=== PATIENT | female | born 1970 | race Two or more races ===

== ENCOUNTER 2024-04-21 08:38 | Outpatient (AMB) | payer MEDICAID, SELFPAY ==
[2024-04-21 08:53] VITALS: BP 137/84; PULSE 80; RESP 18; TEMP 36.8; O2SAT 99; BMI 31.0
--- NOTE | 2024-04-21 08:53 | PD.ORTHCLVIS ---
Vital signs 04/21/24 08:53 Height 1.6 m Height Method Stated Weight 79.549 kg Weight Measurement Method Standing Scale BMI 31.0 BP 137/84 H Blood Pressure Source Automatic Cuff Blood Pressure Location Left Upper Arm Position Sitting Respiration 18 Pulse 80 Pulse Source Monitor Temp 98.2 F Temp Source Oral Pulse Oximetry (%) 99 Oxygen Delivery Method Room Air Med/Allergies Allergies & Medications Allergies No Known Allergies Allergy (Verified 04/21/24 08:54) Medication Reconciliation meloxicam 7.5 mg tablet 7.5 mg PO QDAY #45 tabs 04/21/24 [Rx] Subjective Visit Visit for: new patient and knee Immunization / Flu Flu Vaccine in the Last 12 Months: No Flu Vaccine Exclusion Criteria: Already Received History of Present Illness Chief complaint: MCL TEAR Patient is a pleasant 53-year-old female with a left knee pain. This has been ongoing for over a year after a fall in February. She had an MRI and was found to have a posterior horn medial meniscus tear. Appear to be degenerative and horizontal. I did review this on imaging and also demonstrates this. The pain is actually largely resolved. It is improved significantly. Personal History Occupation: [employer] Red flag PMH: none Pain Pain level (0-10): 0 Pain quality: aching Associated signs & symptoms: none Ambulatory data Ambulatory device: none Treatments Improvement with previous injections: No Improvement with PT: No Improvement with NSAIDS: no Review of Systems Review of Systems: All systems negative unless otherwise noted in HPI. Exam Exam Patient is in no acute distress and is cooperative with the examination today. Breathing is nonlabored. Patient has a normal mood and affect. Bilateral extremities were evaluated and demonstrates sensation intact to light touch. Palpable pedal pulses are present. No significant edema is present. Bilateral hips were examined. The patient has no pain with log roll of the hips. Internal rotation to 30 degrees and external rotation to 30 degrees is painless. Negative FADIR. Right knee was examined today. The right knee is in reasonable alignment. Range of motion from 0-120 degrees. Knee is stable to varus and valgus as well as AP translation with <5mm. Patient has a negative McMurrays. There is no pain with patellofemoral compression and no crepitus noted. The knee is nontender to palpation. Left knee was examined today. The left knee is in [varus] alignment. Range of motion from [0-115] degrees. Knee is stable to varus and valgus as well as AP translation with <5mm. Patient has a [negative] McMurrays. There is [no] pain with patellofemoral compression and [no] crepitus noted. The knee is [tender] to palpation [medially]. Assessment and Plan Problem List (1) Medial meniscus tear: Status: Acute Plan: Patient is a pleasant 53-year-old female with a degenerative meniscal tear. The pain is largely resolved. We discussed nonoperative operative options. We will start with a prescription for meloxicam. Hopefully continues to improve. We can try an injection as needed Office Procedures GNS Level of Care Nursing/Assessment Patient Status: Initial/New Patient Nursing Assessment/Reassesment: Medication Reconciliation, Update PMH in EMR and Vital Signs Coordination of Care: Complex Care/Chronic Disease 5 or more, Education Complex Pt/Fam, Consent,records obtained, informed consent and Staff clarify orders New Patient Charge New Patient Point Assignment: 1099 New Patient Point Charge: OUTSIDE RIGGER Level 3 ([id number]) Past Medical History Past Medical History Have you ever been diagnosed with any of the following: Cardiology Problems Hypertension: Yes Respiratory Problems Smoking: No Smoking Cessation Counseling: No Smoking Exposure: No Endocrine Problems Diabetes Mellitus Type 2: Yes
== END 2024-04-21 09:27 | disposition home or self-care (01) ==
PROVIDERS: PCP Family Medicine; Referring Provider Family Medicine; Supervising Provider Orthopaedic Surgery Adult Reconstructive Orthopaedic Surgery; Visit Provider Orthopaedic Surgery Adult Reconstructive Orthopaedic Surgery
DX: S83.249D Other tear of medial meniscus, current injury, unspecified knee, subsequent encounter (principal); W19.XXXD Unspecified fall, subsequent encounter; I10 Essential (primary) hypertension; E11.9 Type 2 diabetes mellitus without complications
CPT/HCPCS: 99203; G0463

== ENCOUNTER 2024-06-07 15:27 | Outpatient (AMB) | payer MEDICAID, SELFPAY ==
[2024-06-07 15:32] VITALS: BP 141/83; PULSE 77; RESP 18; TEMP 36.3; O2SAT 96; BMI 30.9
--- NOTE | 2024-06-07 15:32 | RHCORTHONT_ITS ---
Vital signs 06/07/24 15:32 Height 1.6 m Height Method Stated Weight 79.038 kg Weight Measurement Method Standing Scale BMI 30.9 BP 141/83 H Blood Pressure Source Automatic Cuff Blood Pressure Location Left Upper Arm Position Sitting Respiration 18 Pulse 77 Pulse Source Monitor Temp 97.3 F Temp Source Temporal Artery Scan Pulse Oximetry (%) 96 Oxygen Delivery Method Room Air Med/Allergies Allergies & Medications Allergies No Known Allergies Allergy (Verified 06/07/24 15:33) Medication Reconciliation meloxicam 7.5 mg tablet 7.5 mg PO QDAY #45 tabs 04/21/24 [Rx Confirmed 06/07/24] Exam Exam Patient is in no acute distress and is cooperative with the examination today. Breathing is nonlabored. Patient has a normal mood and affect. Bilateral extremities were evaluated and demonstrates sensation intact to light touch. Palpable pedal pulses are present. No significant edema is present. Bilateral hips were examined. The patient has no pain with log roll of the hips. Internal rotation to 30 degrees and external rotation to 30 degrees is painless. Negative FADIR. Right knee was examined today. The right knee is in reasonable alignment. Range of motion from 0-120 degrees. Knee is stable to varus and valgus as well as AP translation with <5mm. Patient has a negative McMurrays. There is no pain with patellofemoral compression and no crepitus noted. The knee is nontender to palpation. Left knee was examined today. The left knee is in [varus] alignment. Range of motion from [0-115] degrees. Knee is stable to varus and valgus as well as AP translation with <5mm. Patient has a [negative] McMurrays. There is [no] pain with patellofemoral compression and [no] crepitus noted. The knee is [tender] to palpation [medially]. Assessment and Plan Problem List (1) Medial meniscus tear: Status: Acute Plan: Patient is a pleasant 53-year-old female with a degenerative meniscal tear. The pain is largely resolved. We would like to see x-rays to see how bad the arthritis is. She does not have weightbearing x-rays. I tried to explain to her that I would need to want to better assess the arthritis. I discussed with her that degenerative meniscal tears are usually treated nonoperatively. However, the patient is looking for a surgical treatment. I have not okay doing a surgery that is unlikely to benefit her. I would recommend continue nonoperative treatment as she has not tried Any conservative treatment. We can try an injection today. I would recommend that she get a second opinion as she does not okay with nonoperative treatment We discussed injections. We gave her the consent and she was not comfortable signing it is not okay with the risks. We thus recommend that she get a second opinion with another surgeon. Office Procedures GNS Level of Care Nursing/Assessment Patient Status: Established Patient Nursing Assessment/Reassesment: Medication Reconciliation, Update PMH in EMR and Vital Signs Coordination of Care: Complex Care and Chronic Disease 1-5, Education Complex Pt/Fam, Consent,records obtained, informed consent, 1 Ins Authorization, Results/Orders obtained and Staff clarify orders Established Patient Charge Established Patient Point Assignment: 110 Established Patient Point Charge: EP Level 3 (80-115) MA Intake Visit Data Collection New Patient or Established: Established Patient (seen at [facility] within 3 years) Seen by Clinical Staff ONLY (RN/MA): No Director Quality Assurance Required: No PCP or OBGYN visit in last 3 months: Yes Hx Now: No Do You Feel Safe at Home: Yes Authorities Contacted: N/A Questionairres Past Medical History Past Medical History Have you ever been diagnosed with any of the following: Cardiology Problems Hypertension: Yes Respiratory Problems Smoking: No Smoking Cessation Counseling: No Smoking Exposure: No Endocrine Problems Diabetes Mellitus Type 2: Yes Subjective Visit Visit for: follow up visit Immunization / Flu Flu Vaccine in the Last 12 Months: No Flu Vaccine Exclusion Criteria: No Exclusion Criteria History of Present Illness Chief complaint: Left knee pain Patient is a pleasant 53-year-old female with a left knee pain. This has been ongoing for over a year after a fall in February. She had an MRI and was found to have a posterior horn medial meniscus tear. Appear to be degenerative and horizontal. I did review this on imaging and also demonstrates this. The pain is actually largely resolved. It has improved significantly. Pain Pain level (0-10): 3 Pain duration: ON AND OFF Pain location: inside (medial) Pain quality: aching Associated signs & symptoms: none Ambulatory data Ambulatory device: none Treatments Improvement with previous injections: No Improvement with PT: No Improvement with NSAIDS: no Review of Systems Review of Systems: All systems negative unless otherwise noted in HPI.
== END 2024-06-07 16:17 | disposition home or self-care (01) ==
LOC: HODSRG 15:27
PROVIDERS: PCP Family Medicine; Referring Provider Family Medicine; Supervising Provider Orthopaedic Surgery Adult Reconstructive Orthopaedic Surgery; Visit Provider Orthopaedic Surgery Adult Reconstructive Orthopaedic Surgery
DX: S83.249D Other tear of medial meniscus, current injury, unspecified knee, subsequent encounter (principal); X58.XXXD Exposure to other specified factors, subsequent encounter; M25.562 Pain in left knee
CPT/HCPCS: 99213; J3301; J3490; G0463